=== PATIENT | male | born 1945 | race Caucasian/White ===

== ENCOUNTER 2020-03-22 11:26 | Day surgery (SDC) | payer MEDICARE, SELFPAY ==
[2020-03-19 08:07] VITALS: BMI 24.7
[2020-03-22] VITALS (10 sets, daily range): BP systolic 114–179; BP diastolic 70–87; PULSE 59–94; RESP 10–17; TEMP 36.2–36.5; O2SAT 90–97; BMI 24.3
[2020-03-22] MEDS: LACTATED RINGERS 1,000 ML 42 ML IV ×2 (12:30→14:40)
--- NOTE | 2020-03-22 13:10 | PM.PREOP ---
Pre-operative Note COVID-19 COVID-19 status: Negative Result date/Date tested (Pos, Neg/Pending): 03/19/20 Interval Note History & Physical reviewed/Exam performed by Physician: Yes Changes to H&P: No
[2020-03-22] MEDS: CEFAZOLIN 2 GM/100 ML FROZ.PIGGY IV (13:47)
--- NOTE | 2020-03-22 14:14 | SUR.OPER ---
Supine on padded OR bed, head on foam and gel donut, arms secured on padded arm boards at <90 degrees abduction, legs uncrossed, pillow under knees, safety belt at thigh.
[2020-03-22] MEDS: BUPIVACAINE 0.5% (PF) VIAL 30 ML INJ (14:22)
[2020-03-22] MEDS: METHYLENE BLUE 50 MG/10 ML VIAL IV (15:08)
--- NOTE | 2020-03-22 15:18 | SUR.OPER ---
Urinary catheter inserted at 1450 and 200mls of diluted NS and Methylene Blue irrigated into urinary catheter per verbal order by Dr. Toledo. see MAR.
--- NOTE | 2020-03-22 17:21 | SUR.PHASEII ---
pt arrived to phase II via stretcher. pt sitting up and talking to RN at bedside. Drsg observed to be c/d/i. pt rates pain at surgical site 09/23. Will medicated for pain. pt awaiting friend to arrive for discharge. bed in lowest position and call light given to pt.
[2020-03-22] MEDS: ONDANSETRON 4 MG/2 ML INJ IV (17:24)
[2020-03-22] MEDS: OXYCODONE/ACETAMINOPHEN 5/325 TABLET 1 TAB PO (17:25)
--- NOTE | 2020-03-22 17:40 | P.OP_ITS ---
Operative Date/Time/Diagnoses Date of procedure: 03/22/20 Time of procedure: 17:09 Pre-op diagnosis: Recurrent right inguinal hernia reducible Post-op diagnosis: same (Indirect and direct components) Procedure & Clinicians Procedure: Repair with plug and patch technique. Same procedure as scheduled: Yes Indications: Symptomatic right inguinal hernia. Repair performed in [facility] 10 years ago laparoscopically. Patient brought in for open repair. Surgeon: Bruno Toledo Click Yes if Unassisted: Yes Anesthesia Type: General Operative Notes Findings: Large indirect sac with residual sac from prior operation and fat protruding through the floor into the cord. Closure Type: primary Specimen(s): none sent Prosthetic devices, grafts, tissues, transplants, or devices: Mesh medium plug and patch Estimated Blood Loss (mL): 75 Blood products transfused: none Procedure in detail: The patient was placed supine on the operating room table and underwent general LMA anesthesia. He was prepped and draped in the usual fashion. A transverse incision was made overlying the internal ring after injecting local into the region. This carried down level the external oblique. The external oblique was opened parallel of fibers through the external ring. The 2 leafs of the opened external oblique were dissected bluntly medially and laterally to expose the inguinal ligament and the posterior lamella the anterior rectus sheath. The cord was a markedly dilated structure. I was able to place a Amaris around it. I opened the cremaster proximally and encountered a large indirect sac filled with small bowel. I reduced the small bowel and attempted to separate the sac from the cord structures. However this proved quite difficult due to scarring. So instead I dissected proximally as far as I safely could and freed the sac from the internal oblique superiorly and the structures immediately surrounding it. Pursestring of 2-0 silk was placed in the lumen and the sac close off. I removed the extra distal sac and oversewed the end with a running 2 0 silk as well. I then allowed this stump to retract. Distal to this there was a large fatty mass of tissue within the cord. It was densely adherent to the cord structures. I opened through scar and found myself in what could have either Ban bladder diverticulum or the residual of the sac from his prior operation. A Saldana was placed in the bladder and it was filled with methylene blue and there was no egress into this structure therefore it was presumed to be residual sac from his prior repair. The fat was dissected off the wall of the sac and the sac removed. This fat was essentially scarred in to the cord an under other circumstances would have been preperitoneal fat coming up adjacent to the cord through the floor. Scarring however distorted this finding somewhat. I was able to reduce the fat and the stump of the indirect sac adjacent to 1 another and placed a medium plug above them and tack it into place with interrupted 0 Ethibond suture. I was then able to close the cremaster over it. The entire floor adjacent to the cord was bulging and weekend in such a way that I decided to place sutures from the inguinal ligament and ileopubic tract laterally to the transversalis medially. The sutures were tied and this forced the bulging at the internal ring in. When I tied the sutures there was a fair amount of tension and so I made a relaxing incision in the posterior lamella the anterior rectus sheath to take the tension off. I then placed a patch across the floor and tacked it at the pubic tubercle, the inguinal ligament laterally, the medial cut edge of the posterior lamella the anterior rectus sheath, and superior and lateral to the cord. The opening in the mesh had to be enlarged so there to be no constriction of the cord but it was kept narrow enough that it would not allow bulging through the floor. Sutures were also placed superior lateral to the internal ring in the internal oblique muscle. Once this was secured the external oblique was closed with a running 3 0 Vicryl. The subcu was closed with interrupted 4-0 Vicryl and the skin was closed a running 4-0 Vicryl subcuticular stitch and Steri-Strips. Dressing was applied and the patient tolerated the procedure well. Local anesthetic was infiltrated prior to closure of all layers. This was a very complicated operation lasting twice is long as a normal inguinal hernia repair. Complications: none Post-operative Condition: stable Disposition: PACU Plan for aftercare: Follow-up in the office
== END 2020-03-22 18:00 | disposition home or self-care (01) ==
PROVIDERS: Family Provider Family Medicine; PCP Family Medicine; Referring Provider Family Medicine; Visit Provider Specialist
PROC: (CPT 49520; principal; 2020-03-22 13:45)
DX: K40.91 Unilateral inguinal hernia, without obstruction or gangrene, recurrent (principal); G20 Parkinson's disease; I10 Essential (primary) hypertension; K21.9 Gastro-esophageal reflux disease without esophagitis; E78.00 Pure hypercholesterolemia, unspecified
CPT/HCPCS: 49520; C1781; J0690; J1100; J2405; J2704; J3010; Q9968

== ENCOUNTER 2020-04-26 11:33 | Emergency (ER) | payer MEDICARE, SELFPAY ==
[2020-04-26] VITALS (15 sets, daily range): BP systolic 120–159; BP diastolic 66–84; PULSE 58–74; RESP 18–24; TEMP 36.2; O2SAT 94–99; BMI 25.0
--- NOTE | 2020-04-26 11:48 | DI.RAD.S_ITS ---
PROCEDURE: XR CHEST 1V INDICATIONS: chest pain TECHNIQUE: One view of the chest was acquired. COMPARISON: None. FINDINGS: Surgical changes and devices: None. Lungs and pleura: There is no focal infiltrate. Calcified granuloma in left mid lung field is seen. No pleural effusions or pneumothorax. Mediastinum: Mildly tortuous thoracic aorta is seen.. Heart size is normal. Bones and chest wall: No suspicious bony lesions. Overlying soft tissues appear unremarkable. IMPRESSION: No acute cardiopulmonary pathology. Dictated by: Pio Sanchez M.D. on 04/26/2020 at 12:18 Approved by: Pio Sanchez M.D. on 04/26/2020 at 12:18
[2020-04-26] MEDS: ASPIRIN 81 MG CHEW TAB 324 MG PO (11:53)
[2020-04-26 12:02] LABS: Add Manual Diff / Slide Review NO; Basophils Absolute Auto 0 /uL (0-100); Basophils Percent Auto 0.5 % (0-2); Eosinophils Absolute Auto 100 /uL (0-450); Eosinophils Percent Auto 1.2 % (2-4); Hematocrit 42.9 % (41-53); Hemoglobin 14.4 g/dL (13.5-17.5); INR 1.2 (0.9-1.3); Lymphocytes Absolute Auto 1300 /uL (1100-4500); Lymphocytes Percent Auto 16.2 % (25-40); Mean Corpuscular HGB Conc 33.5 % (30-36); Mean Corpuscular Volume 92.4 fL (80-100); Monocytes Absolute Auto 700 /uL (0-900); Monocytes Percent Auto 8.4 % (3-14); Neutrophils Absolute Auto 5700 /uL (1500-7000); Neutrophils Percent Auto 73.7 % (50-75); Platelet Count 181 X10^3/uL (150-400); Red Blood Cell Count 4.64 X10^6/uL (4.5-5.9); Red Cell Distribution Width 13.7 % (11.6-14.8); White Blood Cell Count 7.7 X10^3/uL (4.5-11.0)
[2020-04-26 12:05] LABS: PTT Partial Thromboplastin Tim 30 SECONDS (26.4-36.2)
[2020-04-26 12:07] LABS: Alanine Aminotransferase 7 IU/L (<50); Albumin 4.3 g/dL (3.5-5.0); Albumin Globulin Ratio 1.5 (1.0-2.8); Alkaline Phosphatase 55 U/L (38-126); Aspartate Aminotransferase 34 IU/L (17-59); BUN Creatinine Ratio 22.6 (6-22); Bilirubin Total 2.1 mg/dL (0.2-1.3); Blood Urea Nitrogen 19 mg/dL (9-20); Calcium 9.1 mg/dL (8.4-10.2); Carbon Dioxide 23 mmol/L (22-32); Chloride 107 mmol/L (98-107); Creatine Kinase 57 U/L (55-170); Estimated Glomerular Filt Rate > 60.0 mL/min (>60); Globulin 2.9 g/dL (1.7-4.1); Glucose 129 mg/dL (80-110); Lipase 113 U/L (23-300); Magnesium 1.7 mg/dL (1.6-2.3); Potassium 4.2 mmol/L (3.4-5.1); Sodium 137 mmol/L (137-145); Total Protein 7.2 g/dL (6.3-8.2)
[2020-04-26 12:17] LABS: HEMOLYSIS 75 (0-50)
[2020-04-26 12:18] LABS: Troponin I < 0.012 ng/mL (0.01-0.034)
--- NOTE | 2020-04-26 12:20 | ED_ITS ---
HPI - Chest Pain <FAISAL Bailey - Last Filed: 04/26/20 15:29> General Chief Complaint: Chest Pain Stated Complaint: Parkinsons, Getting Worse, Chest Tightness Time Seen by Provider: 04/26/20 11:52 Source: patient Mode of arrival: Ambulatory Limitations: no limitations History of Present Illness HPI narrative: The patient is a 75-year-old male nonsmoker with history of Parkinson's disease, hypertension and hyperlipidemia who presents with a chief complaint of chest pressure with ambulation. He states this has been going on for about a year, but is been getting much worse recently. His is currently admitted at this facility with Lewy body dementia as their home situation became unsafe. He states that he is very stressed and very worried about her. He states that he feels short of breath diffuse associated chest pain, but denies any nausea vomiting diarrhea lightheadedness dizziness or abdominal pain. The patient denies any specific cardiac history. Related Data Home Medications Medication Instructions Recorded Confirmed levodopa 100 mg PO TID 03/22/20 04/06/20 Previous Rx's Medication Instructions Recorded atorvastatin [Lipitor] 20 mg PO HS #90 tab 05/12/16 levothyroxine 0.112 mg PO QAM #90 tab 05/12/16 hydrochlorothiazide 25 mg PO QDAY #90 tab 12/14/16 losartan [Cozaar] 50 mg PO QDAY #90 tab 12/14/16 omeprazole 20 mg PO BID #180 cap 12/14/16 oxycodone-acetaminophen [Percocet] See Rx Instructions .ROUTE 03/22/20 .COMPLEX PRN #20 tab Allergies Allergy/AdvReac Type Severity Reaction Status Date / Time doxycycline [DOXYCYCLINE] AdvReac Mild photosensit Verified 04/06/20 13:08 ivity ezetimibe [EZETIMIBE] AdvReac Mild diarrhea Verified 04/06/20 13:08 sildenafil [SILDENAFIL] AdvReac Mild headache Verified 04/06/20 13:08 Review of Systems <FAISAL Bailey - Last Filed: 04/26/20 15:29> Review of Systems Narrative: GENERAL: Denies chills, fatigue, malaise, fever, sweats. HEENT: Denies sinus pain, ear pain, sore throat, difficulty swallowing, dizziness. RESPIRATORY: See HPI CARDIOVASCULAR: See HPI GASTROINTESTINAL: Denies nausea, vomiting, abdominal pain, diarrhea, constipation, melena. : Denies dysuria, frequency, incontinence, hematuria, urinary retention. MUSCULOSKELETAL: denies weakness, joint pain, or bony pain SKIN: Denies rash, skin lesions, or other NEUROLOGIC: Denies weakness, headache, numbness, change in speech, confusion, seizures, incoordination. PSYCHIATRIC: No concerning psychosocial issues. 12 point review of systems is negative except for those stated above Patient History <FAISAL Bailey - Last Filed: 04/26/20 15:29> Medical History HTN (hypertension) Kidney stones Parkinson disease Surgical History H/O hernia repair Hx of left inguinal hernia repair Social History household members: spouse Smoking Status: Never smoker alcohol intake: current Smoking Status: Never smoker alcohol intake frequency: 0-2 drinks per day Substance Use Type: marijuana Exam <FAISAL Bailey - Last Filed: 04/26/20 15:29> Narrative Exam Narrative: GENERAL: This is a well-nourished, well-developed patient, in no acute distress, teary HEAD: Atraumatic. Normocephalic. No temporal or scalp tenderness. EYES: Pupils equal round and reactive. Extraocular motions intact. No scleral icterus. No injection or drainage. ENT: Nose without bleeding, purulent drainage or septal hematoma. Wearing a mask. Airway patent. NECK: Trachea midline. No JVD or lymphadenopathy. Supple, nontender, no meningeal signs. CARDIOVASCULAR: Regular rate and rhythm RESPIRATORY: Clear to auscultation. Breath sounds equal bilaterally. No wheezes, rales, or rhonchi. No increased respiratory effort. No accessory muscle use. Speaking full sentences. GASTROINTESTINAL: Abdomen soft, non-tender, nondistended. No hepato-sple nomegaly, or palpable masses. No guarding. EXTREMITIES: No clubbing, cyanosis, or edema. No joint tenderness, effusion, or edema noted. Positive pedal pulses BACK: Nontender without deformity or crepitance. No flank tenderness. NEURO: AOx3. SKIN: No rash or erythema on visible skin Initial Vital Signs Initial Vital Signs: Vital Signs Temperature 97.1 F L 04/26/20 11:35 Pulse Rate 74 04/26/20 11:35 Respiratory Rate 18 04/26/20 11:35 Blood Pressure 143/70 H 04/26/20 11:35 Pulse Oximetry 99 04/26/20 11:35 <Kelly Alvarado DO - Last Filed: 04/27/20 07:34> Initial Vital Signs Initial Vital Signs: Vital Signs Temperature 97.1 F L 04/26/20 11:35 Pulse Rate 74 04/26/20 11:35 Respiratory Rate 18 04/26/20 11:35 Blood Pressure 143/70 H 04/26/20 11:35 Pulse Oximetry 99 04/26/20 11:35 Scores <FAISAL Bailey - Last Filed: 04/26/20 15:29> GCS Natalie coma scale eye opening: Spontaneous Natalie coma scale verbal response: Orientated Temple coma scale motor response: Obey commands Temple coma scale total score: 15 HEART Score Heart Score history: Moderately Suspicious Heart Score EKG: Normal Heart Score Age: > or = 65 years old Heart Score risk factors: 1-2 risk factors Heart Score troponin: < or = to normal limit Heart Score Total: 4 Course <FAISAL Bailey - Last Filed: 04/26/20 15:29> Orders Ordered: Discontinued Medications Aspirin (Aspirin 81 Mg Chew Tab) 324 mg PO NOW ONE Stop: 04/26/20 11:49 Last Admin: 04/26/20 11:53 Dose: 324 mg Documented by: PORFIRIO Vital Signs Vital signs: Vital Signs - 8 hr 04/26/20 11:35 04/26/20 12:32 04/26/20 12:45 Temperature 97.1 F L Pulse Rate 74 60 59 L Respiratory Rate 18 19 18 Blood Pressure 143/70 H 129/66 Pulse Oximetry 99 96 95 04/26/20 13:00 04/26/20 13:15 04/26/20 13:30 Temperature Pulse Rate 60 67 66 Respiratory Rate 19 18 19 Blood Pressure 120/66 124/69 128/72 Pulse Oximetry 94 95 95 04/26/20 13:45 04/26/20 14:00 04/26/20 14:15 Temperature Pulse Rate 68 62 63 Respiratory Rate 19 21 19 Blood Pressure 137/78 132/70 130/79 Pulse Oximetry 96 95 04/26/20 14:30 04/26/20 14:45 04/26/20 15:00 Temperature Pulse Rate 65 58 L 69 Respiratory Rate 24 21 20 Blood Pressure 137/66 143/73 H Pulse Oximetry 04/26/20 15:01 04/26/20 15:11 04/26/20 15:12 Temperature Pulse Rate 72 74 Respiratory Rate 22 24 Blood Pressure 159/84 H Pulse Oximetry <Kelly Alvarado DO - Last Filed: 04/27/20 07:34> Orders Ordered: Discontinued Medications Aspirin (Aspirin 81 Mg Chew Tab) 324 mg PO NOW ONE Stop: 04/26/20 11:49 Last Admin: 04/26/20 11:53 Dose: 324 mg Documented by: PORFIRIO Vital Signs Vital signs: Vital Signs - 8 hr 04/26/20 11:35 04/26/20 12:32 04/26/20 12:45 Temperature 97.1 F L Pulse Rate 74 60 59 L Respiratory Rate 18 19 18 Blood Pressure 143/70 H 129/66 Pulse Oximetry 99 96 95 04/26/20 13:00 04/26/20 13:15 04/26/20 13:30 Temperature Pulse Rate 60 67 66 Respiratory Rate 19 18 19 Blood Pressure 120/66 124/69 128/72 Pulse Oximetry 94 95 95 04/26/20 13:45 04/26/20 14:00 04/26/20 14:15 Temperature Pulse Rate 68 62 63 Respiratory Rate 19 21 19 Blood Pressure 137/78 132/70 130/79 Pulse Oximetry 96 95 04/26/20 14:30 04/26/20 14:45 04/26/20 15:00 Temperature Pulse Rate 65 58 L 69 Respiratory Rate 24 21 20 Blood Pressure 137/66 143/73 H Pulse Oximetry 04/26/20 15:01 04/26/20 15:11 04/26/20 15:12 Temperature Pulse Rate 72 74 Respiratory Rate 22 24 Blood Pressure 159/84 H Pulse Oximetry MDM - Chest Pain <FAISAL Bailey - Last Filed: 04/26/20 15:29> Lab Data Result diagrams: 04/26/20 11:45 04/26/20 11:45 Labs: Lab Results 04/26/20 04/26/20 04/26/20 Range/Units 11:45 11:45 11:45 WBC 7.7 (4.5-11.0) X10^3/uL RBC 4.64 (4.5-5.9) X10^6/uL Hgb 14.4 (13.5-17.5) g/dL Hct 42.9 (41-53) % MCV 92.4 (80-100) fL MCH 31.0 (26-34) PG MCHC 33.5 (30-36) % RDW 13.7 (11.6-14.8) % Plt Count 181 (150-400) X10^3/uL Neut % (Auto) 73.7 (50-75) % Lymph % (Auto) 16.2 L (25-40) % [place] % (Auto) 8.4 (3-14) % Eos % (Auto) 1.2 L (2-4) % Baso % (Auto) 0.5 (0-2) % Neut # (Auto) 5700 (8315-4058) /uL Lymph # (Auto) 1300 (9278-1922) /uL [place] # (Auto) 700 (0-900) /uL Eos # (Auto) 100 (0-450) /uL Baso # (Auto) 0 (0-100) /uL PT 14.0 H (10.1-12.7) SECONDS INR 1.2 (0.9-1.3) APTT 30 (26.4-36.2) SECONDS D-Dimer (<230) ng/mL Sodium 137 (137-145) mmol/L Potassium 4.2 (3.4-5.1) mmol/L Chloride 107 (98-107) mmol/L Carbon Dioxide 23 (22-32) mmol/L BUN 19 (9-20) mg/dL Creatinine 0.84 (0.66-1.25) mg/dL Estimated GFR > 60.0 (>60) mL/min BUN/Creatinine Ratio 22.6 H (6-22) Glucose 129 H (80-110) mg/dL Calcium 9.1 (8.4-10.2) mg/dL Magnesium 1.7 (1.6-2.3) mg/dL Total Bilirubin 2.1 H (0.2-1.3) mg/dL AST 34 (17-59) IU/L ALT 7 (<50) IU/L Alkaline Phosphatase 55 (38-126) U/L Total Creatine Kinase 57 (55-170) U/L CK-MB (CK-2) TNP CK-MB (CK-2) Rel Index TNP Troponin I < 0.012 (0.01-0.034) ng/mL NT-Pro-B Natriuret Pep (<450) pg/mL Total Protein 7.2 (6.3-8.2) g/dL Albumin 4.3 (3.5-5.0) g/dL Globulin 2.9 (1.7-4.1) g/dL Albumin/Globulin Ratio 1.5 (1.0-2.8) Lipase 113 (23-300) U/L SARS-CoV-2 (PCR) (Negative) 04/26/20 04/26/20 04/26/20 Range/Units 11:45 12:00 12:28 WBC (4.5-11.0) X10^3/uL RBC (4.5-5.9) X10^6/uL Hgb (13.5-17.5) g/dL Hct (41-53) % MCV (80-100) fL MCH (26-34) PG MCHC (30-36) % RDW (11.6-14.8) % Plt Count (150-400) X10^3/uL Neut % (Auto) (50-75) % Lymph % (Auto) (25-40) % [place] % (Auto) (3-14) % Eos % (Auto) (2-4) % Baso % (Auto) (0-2) % Neut # (Auto) (3135-5088) /uL Lymph # (Auto) (7759-3397) /uL [place] # (Auto) (0-900) /uL Eos # (Auto) (0-450) /uL Baso # (Auto) (0-100) /uL PT (10.1-12.7) SECONDS INR (0.9-1.3) APTT (26.4-36.2) SECONDS D-Dimer 592 H (<230) ng/mL Sodium (137-145) mmol/L Potassium (3.4-5.1) mmol/L Chloride (98-107) mmol/L Carbon Dioxide (22-32) mmol/L BUN (9-20) mg/dL Creatinine (0.66-1.25) mg/dL Estimated GFR (>60) mL/min BUN/Creatinine Ratio (6-22) Glucose (80-110) mg/dL Calcium (8.4-10.2) mg/dL Magnesium (1.6-2.3) mg/dL Total Bilirubin (0.2-1.3) mg/dL AST (17-59) IU/L ALT (<50) IU/L Alkaline Phosphatase (38-126) U/L Total Creatine Kinase (55-170) U/L CK-MB (CK-2) CK-MB (CK-2) Rel Index Troponin I (0.01-0.034) ng/mL NT-Pro-B Natriuret Pep 258 (<450) pg/mL Total Protein (6.3-8.2) g/dL Albumin (3.5-5.0) g/dL Globulin (1.7-4.1) g/dL Albumin/Globulin Ratio (1.0-2.8) Lipase (23-300) U/L SARS-CoV-2 (PCR) Negative (Negative) 04/26/20 Range/Units 13:53 WBC (4.5-11.0) X10^3/uL RBC (4.5-5.9) X10^6/uL Hgb (13.5-17.5) g/dL Hct (41-53) % MCV (80-100) fL MCH (26-34) PG MCHC (30-36) % RDW (11.6-14.8) % Plt Count (150-400) X10^3/uL Neut % (Auto) (50-75) % Lymph % (Auto) (25-40) % [place] % (Auto) (3-14) % Eos % (Auto) (2-4) % Baso % (Auto) (0-2) % Neut # (Auto) (7033-1975) /uL Lymph # (Auto) (3365-2610) /uL [place] # (Auto) (0-900) /uL Eos # (Auto) (0-450) /uL Baso # (Auto) (0-100) /uL PT (10.1-12.7) SECONDS INR (0.9-1.3) APTT (26.4-36.2) SECONDS D-Dimer (<230) ng/mL Sodium (137-145) mmol/L Potassium (3.4-5.1) mmol/L Chloride (98-107) mmol/L Carbon Dioxide (22-32) mmol/L BUN (9-20) mg/dL Creatinine (0.66-1.25) mg/dL Estimated GFR (>60) mL/min BUN/Creatinine Ratio (6-22) Glucose (80-110) mg/dL Calcium (8.4-10.2) mg/dL Magnesium (1.6-2.3) mg/dL Total Bilirubin (0.2-1.3) mg/dL AST (17-59) IU/L ALT (<50) IU/L Alkaline Phosphatase (38-126) U/L Total Creatine Kinase 45 L (55-170) U/L CK-MB (CK-2) TNP CK-MB (CK-2) Rel Index TNP Troponin I < 0.012 (0.01-0.034) ng/mL NT-Pro-B Natriuret Pep (<450) pg/mL Total Protein (6.3-8.2) g/dL Albumin (3.5-5.0) g/dL Globulin (1.7-4.1) g/dL Albumin/Globulin Ratio (1.0-2.8) Lipase (23-300) U/L SARS-CoV-2 (PCR) (Negative) Imaging Data Chest x-ray: Radiologist's Impression: [address] [place] [id number] ReportSigned Patient: Alexi Phoenix CMR#: [id number]: 1945cct:[id number]/Sex: 75 / MDate of Service: 04/26/20Loc: EDAccession Number: [id number] Procedure: XR chest 1V Ordering Provider: Kelly Alvarado D.O. PROCEDURE: XR CHEST 1V INDICATIONS: chest pain TECHNIQUE: One view of the chest was acquired. COMPARISON: None. FINDINGS: Surgical changes and devices: None. Lungs and pleura: There is no focal infiltrate. Calcified granuloma in left mid lung field is seen. No pleural effusions or pneumothorax. Mediastinum: Mildly tortuous thoracic aorta is seen.. Heart size is normal. Bones and chest wall: No suspicious bony lesions. Overlying soft tissues appear unremarkable. IMPRESSION: No acute cardiopulmonary pathology. Dictated by: Pio Sanchez M.D. on 04/26/2020 at 12:18 Approved by: Pio Sanchez M.D. on 04/26/2020 at 12:18 ECG Data Attestation: I personally reviewed and interpreted this ECG as follows: Interpretation: Sinus rhythm. Ventricular rate 74. P.r. interval 154. QRS 132. Viewed by Dr Alvarado MDM Narrative Medical decision making narrative: The patient is a 75-year-old male who presents with a chief complaint of worsening chest pressure and dyspnea on exertion over the past few months. He states that this point he has to stop walking down the hallway because of his chest pressure. However results at rest. EKG has no acute findings. Initial troponin is negative. D-dimer is negative when corrected for age. Chest x-ray has no acute findings. However given the patient's reported chest pain with exertion, the fact that he has been off of his medications who for risk factors such as hypertension, and high cholesterol, spoke with hospitalist Dr. Patel regarding possibility of admission for observation and stress test, however feels as though this patient could be evaluated as an outpatient by his primary care provider. The patient is on board with this plan, I did discuss at length very strict return preca utions to the emergency department including any concern of heart attack or stroke. The patient is okay with this plan. Given his psychosocial stressors,I asked [place] BROWN to meet with him. I discussed the possibility of starting aspirin daily, but the patient stated when he did that before he had a GI bleed so he would like to hold off on that. The patient has an appointment with primary care provider in 2 days, I discussed restarting his risk factor mediation medication. Discussed very strict return precautions the emergency department. Patient has no questions or concerns upon discharge and states understanding of return precautions as well as follow-up care. <Kelly Alvarado, DO - Last Filed: 04/27/20 07:34> Lab Data Labs: Lab Results 01/11/21 01/11/21 01/11/21 Range/Units 11:45 11:45 11:45 WBC 7.7 (4.5-11.0) X10^3/uL RBC 4.64 (4.5-5.9) X10^6/uL Hgb 14.4 (13.5-17.5) g/dL Hct 42.9 (41-53) % MCV 92.4 (80-100) fL MCH 31.0 (26-34) PG MCHC 33.5 (30-36) % RDW 13.7 (11.6-14.8) % Plt Count 181 (150-400) X10^3/uL Neut % (Auto) 73.7 (50-75) % Lymph % (Auto) 16.2 L (25-40) % [place] % (Auto) 8.4 (3-14) % Eos % (Auto) 1.2 L (2-4) % Baso % (Auto) 0.5 (0-2) % Neut # (Auto) 5700 (7682-0671) /uL Lymph # (Auto) 1300 (0986-2448) /uL [place] # (Auto) 700 (0-900) /uL Eos # (Auto) 100 (0-450) /uL Baso # (Auto) 0 (0-100) /uL PT 14.0 H (10.1-12.7) SECONDS INR 1.2 (0.9-1.3) APTT 30 (26.4-36.2) SECONDS D-Dimer (<230) ng/mL Sodium 137 (137-145) mmol/L Potassium 4.2 (3.4-5.1) mmol/L Chloride 107 (98-107) mmol/L Carbon Dioxide 23 (22-32) mmol/L BUN 19 (9-20) mg/dL Creatinine 0.84 (0.66-1.25) mg/dL Estimated GFR > 60.0 (>60) mL/min BUN/Creatinine Ratio 22.6 H (6-22) Glucose 129 H (80-110) mg/dL Calcium 9.1 (8.4-10.2) mg/dL Magnesium 1.7 (1.6-2.3) mg/dL Total Bilirubin 2.1 H (0.2-1.3) mg/dL AST 34 (17-59) IU/L ALT 7 (<50) IU/L Alkaline Phosphatase 55 (38-126) U/L Total Creatine Kinase 57 (55-170) U/L CK-MB (CK-2) TNP CK-MB (CK-2) Rel Index TNP Troponin I < 0.012 (0.01-0.034) ng/mL NT-Pro-B Natriuret Pep (<450) pg/mL Total Protein 7.2 (6.3-8.2) g/dL Albumin 4.3 (3.5-5.0) g/dL Globulin 2.9 (1.7-4.1) g/dL Albumin/Globulin Ratio 1.5 (1.0-2.8) Lipase 113 (23-300) U/L SARS-CoV-2 (PCR) (Negative) 04/26/20 04/26/20 04/26/20 Range/Units 11:45 12:00 12:28 WBC (4.5-11.0) X10^3/uL RBC (4.5-5.9) X10^6/uL Hgb (13.5-17.5) g/dL Hct (41-53) % MCV (80-100) fL MCH (26-34) PG MCHC (30-36) % RDW (11.6-14.8) % Plt Count (150-400) X10^3/uL Neut % (Auto) (50-75) % Lymph % (Auto) (25-40) % [place] % (Auto) (3-14) % Eos % (Auto) (2-4) % Baso % (Auto) (0-2) % Neut # (Auto) (2719-4744) /uL Lymph # (Auto) (0240-3340) /uL [place] # (Auto) (0-900) /uL Eos # (Auto) (0-450) /uL Baso # (Auto) (0-100) /uL PT (10.1-12.7) SECONDS INR (0.9-1.3) APTT (26.4-36.2) SECONDS D-Dimer 592 H (<230) ng/mL Sodium (137-145) mmol/L Potassium (3.4-5.1) mmol/L Chloride (98-107) mmol/L Carbon Dioxide (22-32) mmol/L BUN (9-20) mg/dL Creatinine (0.66-1.25) mg/dL Estimated GFR (>60) mL/min BUN/Creatinine Ratio (6-22) Glucose (80-110) mg/dL Calcium (8.4-10.2) mg/dL Magnesium (1.6-2.3) mg/dL Total Bilirubin (0.2-1.3) mg/dL AST (17-59) IU/L ALT (<50) IU/L Alkaline Phosphatase (38-126) U/L Total Creatine Kinase (55-170) U/L CK-MB (CK-2) CK-MB (CK-2) Rel Index Troponin I (0.01-0.034) ng/mL NT-Pro-B Natriuret Pep 258 (<450) pg/mL Total Protein (6.3-8.2) g/dL Albumin (3.5-5.0) g/dL Globulin (1.7-4.1) g/dL Albumin/Globulin Ratio (1.0-2.8) Lipase (23-300) U/L SARS-CoV-2 (PCR) Negative (Negative) 04/26/20 Range/Units 13:53 WBC (4.5-11.0) X10^3/uL RBC (4.5-5.9) X10^6/uL Hgb (13.5-17.5) g/dL Hct (41-53) % MCV (80-100) fL MCH (26-34) PG MCHC (30-36) % RDW (11.6-14.8) % Plt Count (150-400) X10^3/uL Neut % (Auto) (50-75) % Lymph % (Auto) (25-40) % [place] % (Auto) (3-14) % Eos % (Auto) (2-4) % Baso % (Auto) (0-2) % Neut # (Auto) (6599-4858) /uL Lymph # (Auto) (9866-2108) /uL [place] # (Auto) (0-900) /uL Eos # (Auto) (0-450) /uL Baso # (Auto) (0-100) /uL PT (10.1-12.7) SECONDS INR (0.9-1.3) APTT (26.4-36.2) SECONDS D-Dimer (<230) ng/mL Sodium (137-145) mmol/L Potassium (3.4-5.1) mmol/L Chloride (98-107) mmol/L Carbon Dioxide (22-32) mmol/L BUN (9-20) mg/dL Creatinine (0.66-1.25) mg/dL Estimated GFR (>60) mL/min BUN/Creatinine Ratio (6-22) Glucose (80-110) mg/dL Calcium (8.4-10.2) mg/dL Magnesium (1.6-2.3) mg/dL Total Bilirubin (0.2-1.3) mg/dL AST (17-59) IU/L ALT (<50) IU/L Alkaline Phosphatase (38-126) U/L Total Creatine Kinase 45 L (55-170) U/L CK-MB (CK-2) TNP CK-MB (CK-2) Rel Index TNP Troponin I < 0.012 (0.01-0.034) ng/mL NT-Pro-B Natriuret Pep (<450) pg/mL Total Protein (6.3-8.2) g/dL Albumin (3.5-5.0) g/dL Globulin (1.7-4.1) g/dL Albumin/Globulin Ratio (1.0-2.8) Lipase (23-300) U/L SARS-CoV-2 (PCR) (Negative) Discharge Plan Departure Patient Disposition: Home Clinical Impression: Chest pain Qualifiers: Chest pain type: unspecified Qualified Code(s): R07.9 - Chest pain, unspecified Instructions: DI for Chest Pain Activity Restrictions/Additional Instructions: Thank you for trusting us with your care today. As discussed, it does not seem as though you are having an acute cardiac event. However it is very important may follow up with primary care provider as scheduled in the next few days. I think you should have a stress test, and restart medications to help control your high blood pressure and high cholesterol that you were previously on. Please rest over the next few days. As discussed, please have a low threshold of coming back to the emergency department for any acute concerns such as concern of heart attack stroke etcetera. Prescriptions: No Action atorvastatin [Lipitor] 20 MG tablet 20 mg PO HS Qty: 90 RF: 1 levothyroxine 112 MCG tablet 0.112 mg PO QAM Qty: 90 RF: 1 losartan [Cozaar] 50 MG tablet 50 mg PO QDAY Qty: 90 RF: 0 omeprazole 20 MG capsule,delayed release(DR/EC) 20 mg PO BID Qty: 180 RF: 0 hydrochlorothiazide 25 MG tablet 25 mg PO QDAY Qty: 90 RF: 0 levodopa 100 mg Capsule 100 mg PO TID RF: 0 oxycodone-acetaminophen [Percocet] 5-325 mg tablet See Rx Instructions .ROUTE .COMPLEX PRN (Reason: painful procedure) Qty: 20 RF: 0 Referrals: Jh Starks MD [Primary Care Provider] - <Kelly Alvarado DO - Last Filed: 04/27/20 07:34> Cosign ED Attending Wiliamature Attestation: I was immediately available in the department for consultation. Documentation has been reviewed. I agree with assessment and plan.
[2020-04-26 12:34] LABS: NT-proBNP (BNP-Adult 18+) 258 pg/mL (<450)
[2020-04-26 12:44] LABS: D Dimer 592 ng/mL (<230)
[2020-04-26 13:01] LABS: COVID19 -Nasal RAPID Negative (Negative)
[2020-04-26 14:17] LABS: Creatine Kinase 45 U/L (55-170)
[2020-04-26 14:30] LABS: Troponin I < 0.012 ng/mL (0.01-0.034)
--- NOTE | 2020-04-26 15:20 | CM.SWNOTE ---
TANK INSULATOR RUBBER note TANK INSULATOR RUBBER consult requested for patient. Patient is a 75 y/o male who presents to this ED with chest discomfort. Per verbal report from ED provider, patient has reported not taking his medications and his partner is currently admitted at and is awaiting placement. TANK INSULATOR RUBBER enters room and speaks with patient. Patient is A+O x3 and tearful as he describes events leading up to ED visit. Patient reports he has been with his for 50 years and that within the past 90 days, his has experienced a significant progression of Lewy Body Dementia. Patient reports he has been her primary caregiver for 5 years, and has neglected some of his care needs during this time. Patient reports he is under significant stress and is experiencing grief over his 's current state of health. They're not talking about 'recovery'; they're talking about 'placement'. Patient indicates he has some friends and family who are supportive, but states no other needs for care of self at this time. Patient reports that upon d/c he will go up to acute care floor to see his , and requests that TANK INSULATOR RUBBER inform CM TANK INSULATOR RUBBER to see if there is a possibility for a check in. TANK INSULATOR RUBBER calls [phone] and leave . Pl: Patient to be d/c to home STEPHANIE Knowles
== END 2020-04-26 15:30 | disposition home or self-care (01) ==
PROVIDERS: Emergency Medicine; Emergency Provider Nurse Practitioner Family; Family Provider Family Medicine; PCP Family Medicine
DX: R07.9 Chest pain, unspecified (principal); R06.02 Shortness of breath; G20 Parkinson's disease; I10 Essential (primary) hypertension; E78.5 Hyperlipidemia, unspecified; Z87.442 Personal history of urinary calculi
CPT/HCPCS: 36415; 71045; 80053; 82550; 83690; 83735; 83880; 84484; 85025; 85379; 85610; 85730; 87635; 93005; 93010; 99284; C9803

== ENCOUNTER 2020-07-26 12:08 | Emergency (ER) | payer MEDICARE, SELFPAY ==
[2020-07-26 12:13] VITALS: BP 130/75; PULSE 95; RESP 15; TEMP 36.9; O2SAT 95; BMI 24.3
[2020-07-26 14:49] VITALS: BP 129/75; PULSE 74; O2SAT 97
--- NOTE | 2020-07-26 15:33 | ED.RECABL ---
HPI - Recheck/Abnormal Lab/Rx General Chief Complaint: Recheck/Abnormal Lab/Rx Stated Complaint: withdrawal sx from meds, Parkinson's, tremors Time Seen by Provider: 07/26/20 15:12 Source: patient and family History of Present Illness HPI narrative: Patient is here for refill of his medications. In particular he is out of his carbidopa levodopa for Parkinson's. He has been out for 1 week. In addition, he states he has trouble remember to take all of his medications even with the pill box. Pill reminder. He tried calling his primary care, Dr. Jh Starks to get refill. However patient has moved from [place] to [facility] and unsure which pharmacy to send to. There was confusion regarding which pharmacy. Patient states he had episode of upper body trembling and shaking of his arms with some nausea yesterday that lasted about 2 hours. Again had another episode this morning that lasted half an hour. No complaints at this time. I informed patient that he has been out of his Parkinson medication for 1 week and likely tremors would appear. No fall or injury. No recent illness. No headache. No altered mental status. Related Data Home Medications Medication Instructions Recorded Confirmed levodopa 100 mg PO TID 03/22/20 04/06/20 atorvastatin 40 mg PO QPM 07/26/20 07/26/20 carbidopa-levodopa 1 tab PO TID 07/26/20 07/26/20 fluoxetine 40 mg PO DAILY 07/26/20 07/26/20 levothyroxine 125 mcg PO QAM 07/26/20 07/26/20 Previous Rx's Medication Instructions Recorded atorvastatin [Lipitor] 20 mg PO HS #90 tab 05/12/16 levothyroxine 0.112 mg PO QAM #90 tab 05/12/16 hydrochlorothiazide 25 mg PO QDAY #90 tab 12/14/16 losartan [Cozaar] 50 mg PO QDAY #90 tab 12/14/16 omeprazole 20 mg PO BID #180 cap 12/14/16 oxycodone-acetaminophen [Percocet] See Rx Instructions .ROUTE 03/22/20 .COMPLEX PRN #20 tab Allergies Allergy/AdvReac Type Severity Reaction Status Date / Time doxycycline [DOXYCYCLINE] AdvReac Mild photosensit Verified 04/06/20 13:08 ivity ezetimibe [EZETIMIBE] AdvReac Mild diarrhea Verified 04/06/20 13:08 sildenafil [SILDENAFIL] AdvReac Mild headache Verified 04/06/20 13:08 Review of Systems Review of Systems Narrative: GENERAL: Denies chills, fatigue, malaise, fever, sweats. HEENT: Denies sinus pain, ear pain, sore throat RESPIRATORY: Denies dyspnea, cough CARDIOVASCULAR: Denies chest pain, palpitations GASTROINTESTINAL: Complains nausea, denies vomiting, abdominal pain : Denies dysuria, frequency, hematuria MUSCULOSKELETAL: denies muscle or bony pain SKIN: Denies rash, skin lesions NEUROLOGIC: Denies weakness, numbness, complains of tremors ROS Unobtainable: All systems reviewed & are unremarkable except as noted in HPI and below Patient History Medical History HTN (hypertension) Kidney stones Parkinson disease Surgical History H/O hernia repair Hx of left inguinal hernia repair Social History household members: spouse Smoking Status: Never smoker alcohol intake: current Smoking Status: Never smoker alcohol intake frequency: 0-2 drinks per day Substance Use Type: marijuana Exam Narrative Exam Narrative: GENERAL: in no distress, not toxic not dyspneic HEAD: Normocephalic. EYES: Pupils equal round No scleral icterus. No injection no discharge ENT: Mucous membranes moist. NECK: Trachea midline. CARDIOVASCULAR: Regular rate and rhythm without murmurs RESPIRATORY: Clear to auscultation. Breath sounds equal bilaterally. No wheezes, rales, or rhonchi. GASTROINTESTINAL: Abdomen soft, non-tender EXTREMITIES: No gross deformities. BACK: No flank tenderness. NEURO: AOx4. Clear speech no facial droop. No tremors at this time. SKIN: Warm and dry PSYCH: Not anxious, is cooperative Initial Vital Signs Initial Vital Signs: Vital Signs Temperature 98.5 F 07/26/20 12:13 Pulse Rate 95 H 07/26/20 12:13 Respiratory Rate 15 07/26/20 12:13 Blood Pressure 130/75 07/26/20 12:13 Pulse Oximetry 95 07/26/20 12:13 Course Course Course Narrative: No new issues during course of stay. Reevaluation(s) Reevaluation #1: Spoke with patient regarding my discussion with Dr. Jh Starks, he will send patient his refills, all of them to [facility] here [facility] Time: 15:44 Consultations Consultation #1: Spoke with Dr. Jh Starks, his family doctor. There was confusion as far as which pharmacy to send his medications to as he has moved 1 month ago to this current city. He will fill all of his medications now to the [facility] in this town. Time: 15:37 Vital Signs Vital signs: Vital Signs - 8 hr 07/26/20 12:13 07/26/20 14:49 Temperature 98.5 F Pulse Rate 95 H 74 Respiratory Rate 15 Blood Pressure 130/75 129/75 Pulse Oximetry 95 97 MDM - Recheck/Abnormal Lab/Rx Differential Diagnosis Differential diagnosis: Likely encounter for medication refill MDM Narrative Medical decision making narrative: Appropriate for discharge home. Patient here for refill medications. Did have tremors due to out of medications for Parkinson's. No other complaints. 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 Your family physician has sent them to [facility] in [place]. Be sure to set a timer to remind yourself to take her medications. Return if worse or if any questions or concerns. See family doctor for recheck this week. Return if worse or if any questions or concerns Prescriptions: No Action atorvastatin [Lipitor] 20 MG tablet 20 mg PO HS Qty: 90 RF: 1 levothyroxine 112 MCG tablet 0.112 mg PO QAM Qty: 90 RF: 1 losartan [Cozaar] 50 MG tablet 50 mg PO QDAY Qty: 90 RF: 0 omeprazole 20 MG capsule,delayed release(DR/EC) 20 mg PO BID Qty: 180 RF: 0 hydrochlorothiazide 25 MG tablet 25 mg PO QDAY Qty: 90 RF: 0 levodopa 100 mg Capsule 100 mg PO TID RF: 0 oxycodone-acetaminophen [Percocet] 5-325 mg tablet See Rx Instructions .ROUTE .COMPLEX PRN (Reason: painful procedure) Qty: 20 RF: 0 fluoxetine 40 mg capsule 40 mg PO DAILY RF: 0 atorvastatin 40 mg tablet 40 mg PO QPM RF: 0 carbidopa-levodopa 25-250 mg tablet 1 tab PO TID RF: 0 levothyroxine 125 mcg tablet 125 mcg PO QAM RF: 0 Referrals: Jh Starks MD [Primary Care Provider] -
== END 2020-07-26 15:51 | disposition home or self-care (01) ==
PROVIDERS: Emergency Provider Emergency Medicine; Family Provider Family Medicine; PCP Family Medicine
DX: Z76.0 Encounter for issue of repeat prescription (principal); R11.0 Nausea; G20 Parkinson's disease
CPT/HCPCS: 99281

== ENCOUNTER → 2020-07-29 09:58 | Outpatient (CLI) | payer MEDICARE, SELFPAY | PROVIDERS: Family Provider Family Medicine; PCP Family Medicine; Visit Provider Student in an Organized Health Care Education/Training Program | DX: R30.0 Dysuria (principal) | CPT/HCPCS: 87086 ==